=== PATIENT | male | born 1950 | race Caucasian/White ===

== ENCOUNTER 2016-11-29 01:05 | Emergency (ER) | payer OTHER | END 2016-11-29 02:10 | disposition home or self-care (01) | LOC: FER 01:05 | DX: R33.9 Retention of urine, unspecified (principal); G89.29 Other chronic pain; M54.9 Dorsalgia, unspecified; G20 Parkinson's disease; Z88.8 Allergy status to other drugs, medicaments and biological substances; Z79.899 Other long term (current) drug therapy; Z90.89 Acquired absence of other organs; Z98.890 Other specified postprocedural states | CPT/HCPCS: 99283 ==

== ENCOUNTER 2016-12-09 16:12 | Emergency (ER) | payer OTHER ==
[2016-12-09 17:44] LABS: BASOPHIL 0.3 % (0-2); EOSINOPHIL 3.3 % (0-7); HCT 41.8 % (42.0-52.0); HGB 14.3 g/dl (13.2-18.0); LYMPHOCYTE 15.7 % (15-48); MCH 31.7 pg (25.0-31.0); MCHC 34.2 g/dL (32.0-36.0); MCV 92.7 fL (78.0-100.0); MONOCYTE 12.8 % (0-12); MPV 9.2 fL (6.0-9.5); NEUTROPHIL 67.9 % (41-80); PLT 208 K/uL (150-400); RBC 4.51 M/uL (4.70-6.00); RDW 14.1 % (11.5-14.0); WBC 6.6 K/uL (4.0-10.5)
[2016-12-09 18:11] LABS: BILIRUBIN - TOTAL 0.5 mg/dL (0.1-1.0); CREATININE 0.7 mg/dL (0.7-1.2); GLOBULIN (CALCULATION) 2.5 g/dL (2.2-4.2); TOTAL PROTEIN 6.5 g/dL (6.4-8.3)
== END 2016-12-09 20:06 | disposition home or self-care (01) ==
LOC: FER 16:12
PROVIDERS: Nurse Practitioner
DX: I82.4Z2 Acute embolism and thrombosis of unspecified deep veins of left distal lower extremity (principal); Z88.8 Allergy status to other drugs, medicaments and biological substances
CPT/HCPCS: 36415; 80053; 85025; 85379; 93971